=== PATIENT | female | born 1985 | race African-American/Black ===

== ENCOUNTER 2016-10-16 09:26 | Day surgery (SDC) | payer BC ==
[~2016-10-16] VITALS: Ht 167.6 cm; Wt 65.4 kg
[~2016-10-16 09:26] MED LIST: VENTOLIN HFA18 GM IH
[2016-10-16 09:55] VITALS: BP 116/66
[2016-10-16 10:07] LABS: EOSINOPHIL (%) 0.8 % (0-5); LYMPHOCYTE COUNT 2.5 K/uL (1.0-2.8); MCH 27.1 PG (29.0-34.0); MCHC 31.9 G/DL (30.0-36.0); MCV 84.9 FL (83-99); MEAN PLAT.VOLUME 10.2 uM^3 (9.5-12.4); MONOCYTE (%) 6.5 % (3-12); MONOCYTE COUNT 0.3 K/uL (0-0.8); NEUTROPHIL (%) 41.4 % (45-76); PLATELET COUNT 190 K/uL (156-360); RBC DIS.WIDTH-CV 13.1 % (11.8-14.6); RBC DIS.WIDTH-SD 40.3 % (39-53); RED BLOOD COUNT 4.36 M/uL (3.80-5.20); WHITE BLOOD COUNT 4.9 K/uL (4.1-10.2)
[2016-10-16] MEDS ORDERED: HYDROCODON-ACE1 EAC7 PO (13:11)
[2016-10-16] MEDS ORDERED: DOXYCYCLINE HY100 MG PO (13:11)
[2016-10-16] MEDS ORDERED: IBUPROFEN800 MG PO (13:11)
[2016-10-16 13:55] VITALS: BP 131/81
[2016-10-16 14:53] VITALS: BP 114/61
== END 2016-10-16 15:00 | disposition home or self-care (01) ==
LOC: SDC 09:26
PROVIDERS: Obstetrics & Gynecology
PROC: 0UDB8ZX Extraction of Endometrium, Via Natural or Artificial Opening Endoscopic, Diagnostic (ICD-10-PCS; principal; 2016-10-16)
DX: O03.1 Delayed or excessive hemorrhage following incomplete spontaneous abortion (principal); J45.909 Unspecified asthma, uncomplicated; Z88.0 Allergy status to penicillin; Z82.49 Family history of ischemic heart disease and other diseases of the circulatory system; Z83.3 Family history of diabetes mellitus; Z81.8 Family history of other mental and behavioral disorders; Z80.6 Family history of leukemia
CPT/HCPCS: 84702; 85025; 86850; 86900; 86901; 87086; 88305; J0330; J1100; J1885; J2250; J2405; J2765; J3010

== ENCOUNTER 2017-04-13 19:25 | Emergency (ER) | payer BC ==
[~2017-04-13] VITALS: Ht 167.6 cm; Wt 68.7 kg
[~2017-04-13 19:25] MED LIST changes: +DOXYCYCLINE HY100 MG PO; +HYDROCODON-ACE1 EAC7 PO; +IBUPROFEN800 MG PO
[2017-04-13 20:30] LABS: HEMATOCRIT 34.3 % (36.0-46.0); HEMOGLOBIN 11.1 G/DL (11.9-15.5); MCH 28.5 PG (29.0-34.0); MCHC 32.4 G/DL (30.0-36.0); MCV 88.2 FL (83-99); PLATELET COUNT 171 K/uL (156-360); RBC DIS.WIDTH-CV 13.4 % (11.8-14.6); RBC DIS.WIDTH-SD 42.9 % (39-53); RED BLOOD COUNT 3.89 M/uL (3.80-5.20); WHITE BLOOD COUNT 7.3 K/uL (4.1-10.2)
[2017-04-13 21:09] LABS: ALBUMIN 4.4 G/DL (3.2-4.8); ALKALINE PHOSPHATASE 43 IU/L (3-129); ALT (GPT) 49 IU/L (3-49); AST (GOT) 31 IU/L (2-34); CHLORIDE 109 MEQ/L (99-109); CREATININE 0.7 MG/DL (0.6-1.3); GFR ESTIMATE (CALCULATED) > 59 mL/min/; GLUCOSE 99 mg/dL (70-99); LIPASE 20 U/L (1.0-51.0); SODIUM 140 MEQ/L (136-147); TOTAL BILIRUBIN 0.3 MG/DL (0.0-1.0); UREA NITROGEN (BUN) 9 mg/dL (9-23)
[2017-04-13 21:32] LABS: APPEARANCE CLEAR ((CLEAR)); BILIRUBIN NEGATIVE; BLOOD NEGATIVE; COLOR YELLOW ((YELLOW)); GLUCOSE (STRIP) NEGATIVE; KETONES NEGATIVE; LEUKOCYTES NEGATIVE; NITRITE NEGATIVE; PROTEIN (STRIP) NEGATIVE; SPECIFIC GRAVITY 1.018 (1.000-1.030); UCUL ADDED? NO; UROBILINOGEN 0.2 MG/DL (0.2-1.0)
[2017-04-13 21:36] LABS: QUANTITATIVE HCG < 4.0 MIU/ML
[2017-04-13] MEDS ORDERED: PERCOCET 5/31 TABLET PO (22:51)
[2017-04-13] MEDS ORDERED: ZOFRAN4 MG PO (22:51)
[2017-04-13 23:28] VITALS: BP 115/55
== END 2017-04-13 23:29 | disposition home or self-care (01) ==
LOC: EME 19:25
DX: R10.11 Right upper quadrant pain (principal); J45.909 Unspecified asthma, uncomplicated; F32.9 Major depressive disorder, single episode, unspecified; F41.9 Anxiety disorder, unspecified; Z88.0 Allergy status to penicillin
CPT/HCPCS: 76705; 80053; 81003; 83690; 84702; 85027; 99281; 99284; J1885

== ENCOUNTER → 2017-04-21 | Outpatient (CLI) | payer BC ==
[~2017-04-21] MED LIST changes: +PERCOCET 5/31 TABLET PO; +ZOFRAN4 MG PO
== END | disposition home or self-care (01) ==
LOC: NUC 09:55
DX: R10.11 Right upper quadrant pain (principal)
CPT/HCPCS: 78227; A9537; J2805